=== PATIENT | male | born 1950 ===

== ENCOUNTER 2016-07-16 09:30 | Outpatient (RCR) | payer OTHER | END 2016-07-19 | disposition home or self-care (01) | LOC: PTY 09:30 | PROVIDERS: ATTEND Internal Medicine | DX: M54.31 Sciatica, right side (principal); M54.32 Sciatica, left side ==

== ENCOUNTER 2016-08-06 10:52 | Outpatient (RCR) | payer OTHER | END 2016-08-19 | disposition home or self-care (01) | LOC: PTY 10:52 | PROVIDERS: ATTEND Internal Medicine | DX: M54.31 Sciatica, right side (principal); M54.32 Sciatica, left side ==

== ENCOUNTER 2016-08-25 09:04 | Outpatient (RCR) | payer OTHER | END 2016-09-18 | disposition home or self-care (01) | LOC: PTY 09:04 | PROVIDERS: ATTEND Internal Medicine | DX: M54.31 Sciatica, right side (principal); M54.32 Sciatica, left side ==